=== PATIENT | female | born 1960 | race Caucasian/White ===

== ENCOUNTER 2018-05-10 14:00 | Emergency (ER) | payer BC, MEDICAID ==
[~2018-05-10] VITALS: Ht 154.9 cm; Wt 52.2 kg
== END 2018-05-10 14:03 | disposition expired ==
LOC: MED 14:00
DX: I46.9 Cardiac arrest, cause unspecified (principal); Z85.3 Personal history of malignant neoplasm of breast; Z92.21 Personal history of antineoplastic chemotherapy; Z93.1 Gastrostomy status
CPT/HCPCS: 31500; 92950; 99285